=== PATIENT | female | born 1985 | race Caucasian/White ===

== ENCOUNTER 2023-07-06 12:39 | Emergency (ER) | payer MEDICAID, OTHER ==
[2023-07-06] MEDS ORDERED: Clindamycin 150 MG CAP ONE (13:17)
[2023-07-06] MEDS ORDERED: HYDROcodone/Acetaminophen 5/325 mg Tablet ONE (13:17)
== END 2023-07-06 13:22 | disposition home or self-care (01) ==
LOC: CSHERS 12:39
DX: K02.9 Dental caries, unspecified (principal)
CPT/HCPCS: 99282